=== PATIENT | female | born 1935 | race Caucasian/White ===

== ENCOUNTER → 2018-11-24 | Outpatient (CLI) | payer MEDICARE, OTHER | END | disposition home or self-care (01) | LOC: CFH 15:14 | PROVIDERS: ATTEND Internal Medicine Cardiovascular Disease | DX: I35.8 Other nonrheumatic aortic valve disorders (principal); I35.2 Nonrheumatic aortic (valve) stenosis with insufficiency; I25.10 Atherosclerotic heart disease of native coronary artery without angina pectoris; I11.9 Hypertensive heart disease without heart failure | CPT/HCPCS: 93306 ==

== ENCOUNTER → 2018-12-21 | Outpatient (CLI) | payer MEDICARE ==
[~2018-12-21] MED LIST: REGADENOSON 0.4 MG/5 ML SYRINGE ONE
== END | disposition home or self-care (01) ==
LOC: CFH 13:19
PROVIDERS: ATTEND Internal Medicine Cardiovascular Disease
DX: I10 Essential (primary) hypertension (principal); R07.89 Other chest pain
CPT/HCPCS: 78452; 93017; A9502; J2785

== ENCOUNTER → 2019-11-12 | Outpatient (CLI) | payer MEDICARE | END | disposition home or self-care (01) | LOC: CFH 14:32 | PROVIDERS: ATTEND Internal Medicine Cardiovascular Disease | DX: I35.1 Nonrheumatic aortic (valve) insufficiency (principal); I11.9 Hypertensive heart disease without heart failure | CPT/HCPCS: 93306 ==

== ENCOUNTER → 2020-06-02 | Outpatient (CLI) | payer MEDICARE | END | disposition home or self-care (01) | LOC: CFH 09:03 | PROVIDERS: ATTEND Internal Medicine Cardiovascular Disease | DX: I08.0 Rheumatic disorders of both mitral and aortic valves (principal); I11.9 Hypertensive heart disease without heart failure; R07.89 Other chest pain | CPT/HCPCS: 93306 ==

== ENCOUNTER → 2021-01-03 | Outpatient (CLI) | payer MEDICARE | END | disposition home or self-care (01) | LOC: CFH 10:22 | PROVIDERS: ATTEND Internal Medicine Cardiovascular Disease | DX: I08.0 Rheumatic disorders of both mitral and aortic valves (principal); I11.9 Hypertensive heart disease without heart failure; R07.89 Other chest pain | CPT/HCPCS: 93306 ==

== ENCOUNTER → 2021-03-02 | Outpatient (CLI) | payer MEDICARE | END | disposition home or self-care (01) | LOC: CFH 09:50 | PROVIDERS: ATTEND Family Medicine | DX: M81.0 Age-related osteoporosis without current pathological fracture (principal); N95.1 Menopausal and female climacteric states | CPT/HCPCS: 77080 ==

== ENCOUNTER 2021-05-17 12:03 | Observation (INO) | payer MEDICARE ==
[~2021-05-17] VITALS: Ht 157.5 cm; Wt 82.5 kg
[~2021-05-17 12:03] MED LIST changes: -REGADENOSON 0.4 MG/5 ML SYRINGE ONE; +SODIUM CHLORIDE 0.9% 1,000 ML IV SCH
[2021-05-17] MEDS ORDERED: LEVO100T5 PO (12:37)
[2021-05-17] MEDS ORDERED: LOSA100T14 PO (12:37)
[2021-05-17] MEDS ORDERED: HYDR25TA6 PO (12:38)
[2021-05-17] MEDS ORDERED: VIT1CAPS42 PO (12:39)
[2021-05-17] MEDS ORDERED: ALEN70TA77 PO (12:39)
[2021-05-17] MEDS ORDERED: AMLO-150 PO (12:39)
[2021-05-17] MEDS ORDERED: VIT C (12:40)
[2021-05-17] MEDS ORDERED: CHOL500020 PO (12:40)
[2021-05-17] MEDS ORDERED: VIT B (12:41)
[2021-05-17] MEDS ORDERED: [UNRECOGNIZED DRUG - OTHER] (12:41)
[2021-05-17] MEDS ORDERED: [UNRECOGNIZED DRUG - OTHER] (12:42)
[2021-05-17] MEDS ORDERED: COQ10 (12:42)
[2021-05-17 12:46] VITALS: BP 126/66
[2021-05-17 13:49] LABS: BASOPHILS % (AUTO) 1 % (0-1); EOSINOPHILS % (AUTO) 3 % (1-7); LYMPHOCYTES % (AUTO) 30 % (22-44); MEAN CORPUSCULAR HEMOGLOBIN 28.7 pg (27.0-34.8); MEAN CORPUSCULAR HGB CONC 33.3 g/dL (32.4-35.8); MONOCYTES % (AUTO) 6 % (2-9); NEUTROPHILS % (AUTO) 60 % (42-75); PLATELET COUNT 197 x10^3/uL (130-400); RED BLOOD COUNT 4.62 x10^6/uL (3.82-5.3); RED CELL DISTRIBUTION WIDTH 13.8 % (9.6-15.2)
[2021-05-17 13:51] LABS: ANION GAP 5 mmol/L (5-15); CALCIUM 8.7 mg/dL (8.5-10.1); CHLORIDE 112 mmol/L (98-107); CREATININE 0.45 mg/dL (0.55-1.02)
[2021-05-17] MEDS ORDERED: FENTANYL PF 100 MCG/2ML ONE (13:56)
[2021-05-17] MEDS ORDERED: TICAGRELOR 90 MG TABLET ONE (13:56)
[2021-05-17] MEDS ORDERED: VERAPAMIL 2.5 MG/ML, 2ML ONE (13:56)
[2021-05-17] MEDS ORDERED: LIDOCAINE-MPF 1%, 5ML ONE (13:56)
[2021-05-17] MEDS ORDERED: BIVALIRUDIN 250 MG ONE (13:56)
[2021-05-17] MEDS ORDERED: HEPARIN 1,000 UNITS/ML, 10ML ONE (13:56)
[2021-05-17] MEDS ORDERED: MIDAZOLAM 1 MG/ML, 2ML ONE ×2 (13:57→14:56)
[2021-05-17] MEDS ORDERED: ASPIRIN 325 MG TABLET EC ONE (15:01)
[2021-05-17] MEDS ORDERED: BIVALIRUDIN 250 MG in SODIUM CHLORIDE 0.9% 50 ML IV SCH (15:30)
[2021-05-17 16:00] VITALS: BP 115/69
[2021-05-17] MEDS: SODIUM CHLORIDE 0.45% 500 ML IV SCH ×2 (17:11→23:30)
[2021-05-17 20:00] VITALS: BP 123/76
[2021-05-17] MEDS: TICAGRELOR 90 MG TABLET PO SCH (22:43)
[2021-05-17] MEDS: AMLODIPINE 5 MG TABLET PO SCH (22:43)
[2021-05-18 03:00] VITALS: BP 118/71
[2021-05-18 04:22] VITALS: BP 118/71
[2021-05-18] MEDS ORDERED: LEVOTHYROXINE 100 MCG TABLET PO SCH (06:00)
[2021-05-18 06:29] LABS: ANION GAP 6 mmol/L (5-15); CALCIUM 8.5 mg/dL (8.5-10.1); CHLORIDE 110 mmol/L (98-107)
[2021-05-18 06:30] LABS: CREATININE 0.53 mg/dL (0.55-1.02)
[2021-05-18] MEDS: AMLODIPINE 5 MG TABLET PO SCH (08:00)
[2021-05-18] MEDS: TICAGRELOR 90 MG TABLET PO SCH (08:00)
[2021-05-18 08:20] VITALS: BP 115/69
[2021-05-18] MEDS ORDERED: LOSARTAN 100 MG TAB PO SCH (09:00)
[2021-05-18] MEDS ORDERED: ASPIRIN 81 MG TABLET EC PO SCH (09:00)
[2021-05-18] MEDS ORDERED: ASPI81TA45 PO (10:02)
[2021-05-18] MEDS ORDERED: TICA90TA PO (10:02)
[2021-05-21] MEDS ORDERED: ALENDRONATE 70 MG TABLET PO SCH (06:30)
== END 2021-05-18 14:31 | disposition home or self-care (01) ==
LOC: CACL 12:03 → 5SO 15:12 → CACL 16:24
PROVIDERS: ADMIT Internal Medicine Cardiovascular Disease; ATTEND Internal Medicine Cardiovascular Disease
DX: I35.0 Nonrheumatic aortic (valve) stenosis (principal); I25.10 Atherosclerotic heart disease of native coronary artery without angina pectoris; I10 Essential (primary) hypertension; Z79.82 Long term (current) use of aspirin; Z79.899 Other long term (current) drug therapy
CPT/HCPCS: 36415; 80048; 85025; 93005; 93306; 93356; 93458; 96360; 96361; 99156; 99157; C1725; C1769; C1874; C1887; C1894; C9600; G0378; J0583; J1644; J2250; J3010; Q9967

== ENCOUNTER 2021-05-25 07:26 | Observation (INO) | payer MEDICARE ==
[~2021-05-25] VITALS: Ht 157.5 cm; Wt 88.8 kg
[~2021-05-25 07:26] MED LIST changes: +ALEN70TA77 PO; +AMLO-150 PO; +ASPI81TA45 PO; +CHOL500020 PO; +COQ10; +HYDR25TA6 PO; +LEVO100T5 PO; +LOSA100T14 PO; -SODIUM CHLORIDE 0.9% 1,000 ML IV SCH; +TICA90TA PO; +VIT B; +VIT C; +VIT1CAPS42 PO; +[UNRECOGNIZED DRUG - OTHER]; +[UNRECOGNIZED DRUG - OTHER]
[2021-05-25] MEDS ORDERED: Potassium PO (07:54)
[2021-05-25] MEDS ORDERED: TURM1TAB PO (07:54)
[2021-05-25] MEDS ORDERED: GARL500C2 PO (07:54)
[2021-05-25 07:59] VITALS: BP 135/57
[2021-05-25] MEDS ORDERED: PLEASE ENTER HEIGHT AND WEIGHT MC SCH (08:00)
[2021-05-25 08:18] LABS: BASOPHILS % (AUTO) 1 % (0-1); EOSINOPHILS % (AUTO) 3 % (1-7); LYMPHOCYTES % (AUTO) 26 % (22-44); MEAN CORPUSCULAR HEMOGLOBIN 28.4 pg (27.0-34.8); MEAN CORPUSCULAR HGB CONC 33.3 g/dL (32.4-35.8); MEAN PLATELET VOLUME 8.1 fL (7.4-10.4); MONOCYTES % (AUTO) 7 % (2-9); NEUTROPHILS % (AUTO) 63 % (42-75); PLATELET COUNT 261 x10^3/uL (130-400); RED BLOOD COUNT 4.81 x10^6/uL (3.82-5.3); RED CELL DISTRIBUTION WIDTH 13.7 % (9.6-15.2)
[2021-05-25 08:31] LABS: ANION GAP 7 mmol/L (5-15); CHLORIDE 107 mmol/L (98-107); CREATININE 0.49 mg/dL (0.55-1.02)
[2021-05-25] MEDS ORDERED: FENTANYL PF 100 MCG/2ML ONE (08:42)
[2021-05-25] MEDS ORDERED: VERAPAMIL 2.5 MG/ML, 2ML ONE (08:42)
[2021-05-25] MEDS ORDERED: MIDAZOLAM 1 MG/ML, 5ML ONE (08:42)
[2021-05-25] MEDS ORDERED: HEPARIN 1,000 UNITS/ML, 10ML ONE (08:43)
[2021-05-25] MEDS ORDERED: LIDOCAINE-MPF 1%, 5ML ONE (08:43)
[2021-05-25] MEDS ORDERED: BIVALIRUDIN 250 MG ONE (08:53)
[2021-05-25] MEDS ORDERED: TICAGRELOR 90 MG TABLET PO ONE (09:00)
[2021-05-25] MEDS ORDERED: ASPIRIN 325 MG TABLET EC PO ONE (09:00)
[2021-05-25 12:38] VITALS: BP 128/66
[2021-05-25] MEDS ORDERED: DOCUSATE 100 MG CAPSULE PO PRN (17:30)
[2021-05-25] MEDS ORDERED: ALENDRONATE 70 MG TABLET PO SCH (17:30)
[2021-05-25] MEDS ORDERED: DIPHENHYDRAMINE 50 MG CAPSULE PO PRN (17:30)
[2021-05-25] MEDS ORDERED: ACETAMINOPHEN 325 MG TABLET PO PRN (17:30)
[2021-05-25 20:02] VITALS: BP 122/69
[2021-05-25] MEDS: AMLODIPINE 5 MG TABLET PO SCH (20:04)
[2021-05-25] MEDS: TICAGRELOR 90 MG TABLET PO SCH (20:05)
[2021-05-26 00:53] VITALS: BP 115/62
[2021-05-26 06:41] LABS: ANION GAP 5 mmol/L (5-15); CALCIUM 8.7 mg/dL (8.5-10.1); CHLORIDE 109 mmol/L (98-107); CREATININE 0.46 mg/dL (0.55-1.02)
[2021-05-26 06:53] VITALS: BP 121/70
[2021-05-26] MEDS: TICAGRELOR 90 MG TABLET PO SCH (08:04)
[2021-05-26] MEDS: AMLODIPINE 5 MG TABLET PO SCH (08:04)
[2021-05-26] MEDS ORDERED: ACET325T26 PO (08:22)
[2021-05-26] MEDS ORDERED: ASPIRIN 81 MG TABLET EC PO SCH (09:00)
[2021-05-26] MEDS ORDERED: ATOR20TA PO (09:00)
[2021-05-26] MEDS ORDERED: LOSARTAN 100 MG TAB PO SCH (09:00)
[2021-05-26] MEDS ORDERED: HYDROCHLOROTHIAZIDE 25 MG TABLET PO SCH (09:00)
[2021-05-26] MEDS ORDERED: LEVOTHYROXINE 100 MCG TABLET PO SCH (09:00)
[2021-05-26] MEDS ORDERED: POTASSIUM CHLORIDE 20 MEQ TAB.ER.PRT PO ONE (09:00)
[2021-05-26] MEDS ORDERED: POTASSIUM CHLORIDE 20 MEQ TAB.ER.PRT ONE ×2 (09:56→09:57)
[2021-05-26 13:56] VITALS: BP 115/74
== END 2021-05-26 15:50 | disposition home or self-care (01) ==
LOC: CACL 07:26 → 5SO 11:20 → CACL 17:11 → 5SO 17:11
PROVIDERS: ADMIT Internal Medicine Cardiovascular Disease; ATTEND Internal Medicine Cardiovascular Disease
DX: I25.10 Atherosclerotic heart disease of native coronary artery without angina pectoris (principal); I35.0 Nonrheumatic aortic (valve) stenosis; I10 Essential (primary) hypertension; E78.5 Hyperlipidemia, unspecified; Z79.82 Long term (current) use of aspirin; Z79.899 Other long term (current) drug therapy
CPT/HCPCS: 36415; 80048; 85014; 85018; 85025; 93454; 99156; C1725; C1760; C1769; C1874; C1887; C1894; C9600; G0378; J0583; J1644; J2250; J3010; Q9967